=== PATIENT | female | born 1980 | race Caucasian/White ===

== ENCOUNTER 2022-07-28 14:55 | Outpatient (CLI) | payer BC | END 2022-07-28 14:56 | disposition home or self-care (01) | LOC: BICMAMMO 14:55 | PROVIDERS: ATTEND Nurse Practitioner Family | DX: N63.11 Unspecified lump in the right breast, upper outer quadrant (principal) | CPT/HCPCS: 77066; G0279 ==

== ENCOUNTER 2024-08-08 08:08 | Outpatient (CLI) | payer BC | END 2024-08-08 08:09 | disposition home or self-care (01) | LOC: BICMAMMO 08:08 | PROVIDERS: ATTEND Obstetrics & Gynecology | DX: N63.11 Unspecified lump in the right breast, upper outer quadrant (principal) | CPT/HCPCS: G0279 ==